=== PATIENT | female | born 1930 | race Caucasian/White ===

== ENCOUNTER 2018-12-18 09:59 | Inpatient (IN) | payer OTHER ==
[~2018-12-18] VITALS: Ht 170.2 cm; Wt 72.8 kg
[~2018-12-18 09:59] MED LIST: ACE325RS PO; FLUT250M2 INH; FURO20TA3 PO; KLOR CON; LOSA-69 PO; LOVA40TA46 PO; METO-169 PO; [UNRECOGNIZED DRUG - CODE] PO
[2018-12-18 11:11] LABS: Basophils # (auto) 0.1 uL; Basophils % (auto) 0.9 % (0.0-2.0); Eosinophils # (auto) 0.1 uL; Eosinophils % (auto) 1.8 % (0.0-7.0); Hematocrit 49.7 % (36.0-46.0); Hemoglobin 16.2 g/dL (12.2-16.2); Lymphocytes # (auto) 1.2 uL; Lymphocytes % (auto) 21.2 % (10.0-50.0); Mean Corpuscular Hemoglobin 28.3 pg (28.0-32.0); Mean Corpuscular Hgb Conc. 32.6 g/dL (32.0-36.0); Mean Corpuscular Volume 86.9 fL (80.0-100.0); Monocytes # (auto) 0.7 uL; Monocytes % (auto) 11.5 % (0.0-12.0); Neutrophils # (auto) 3.7 uL; Neutrophils % (auto) 64.6 % (37.0-80.0); Nucleated Red Blood Cells % 0.1 %; Platelet Count (auto) 251 10^3/uL (140-450); Red Blood Cells 5.72 10^6/uL (4.0-5.20); Red Cell Distribution Width 16.6 % (11.8-14.3); White Blood Cell 5.7 10^3/uL (4.4-10.8)
[2018-12-18 11:27] LABS: INR < 0.93 (0.9-1.15); Partial Thromboplastin Time 26.2 sec (23.64-32.05)
[2018-12-18 11:32] LABS: Albumin 3.8 g/dL (3.4-5.0); Anion Gap 3 (5-15); Blood Urea Nitrogen 12 mg/dL (7-18); Carbon Dioxide 34 mmol/L (21-32); Chloride 104 mmol/L (98-107); Glucose 104 mg/dL (74-106); Potassium 3.5 mmol/L (3.5-5.1); Sodium 141 mmol/L (136-145)
[2018-12-18 11:38] LABS: Alanine Aminotransferase 17 U/L (13-56); Alkaline Phosphatase 119 U/L (45-117); Aspartate Aminotransferase 12 U/L (15-37); Bilirubin, Total 0.5 mg/dL (0.2-1.0); GFR African American 87 mL/min; GFR Non-African American 72 mL/min; Total Protein 7.3 g/dL (6.4-8.2)
[2018-12-18] MEDS ORDERED: IPRATROPIUM BROM 0.5 MG/2.5ML INH SOL NEB PRN (13:15)
[2018-12-18] MEDS ORDERED: ALBUTEROL SULF 2.5 MG/0.5ML(0.5%) NEB SOLN NEB PRN ×2 (13:15→14:15)
[2018-12-18] MEDS ORDERED: MORPHINE SULF INJ 2 MG/ML SYRINGE 1ML IV PRN ×2 (13:15)
[2018-12-18] MEDS ORDERED: NITROGLYCERIN 0.4 MG SL TAB SL PRN (13:15)
[2018-12-18] MEDS ORDERED: ONDANSETRON HCL 4 MG/2 ML VIAL IV PRN (13:15)
[2018-12-18] MEDS: hydrALAZINE HCL 20 MG/ML VL IV PRN (14:11)
[2018-12-18] MEDS ORDERED: LOSARTAN POTASSIUM 50 MG TAB PO ONE (14:15)
[2018-12-18] MEDS ORDERED: NITROGLYCERIN 0.2MG/HR TOPICAL PATCH TD ONE (16:15)
[2018-12-18 16:30] VITALS: BP 152/86
[2018-12-18] MEDS ORDERED: POTA10TA51 PO (16:36)
[2018-12-18 16:37] VITALS: BP 152/86
--- NOTE | 2018-12-18 19:00 | NUR ---
Opening Shift Note Assumed care of patient, awake and alert. No S/S of distress/SOB or pain. Instructed on POC and to call for assist PRN, will continue to monitor for changes Q1hr and PRN.
[2018-12-18 20:00] VITALS: BP 145/81
[2018-12-18] MEDS: traMADol HCL 50 MG TAB PO PRN (20:17)
[2018-12-18 22:00] VITALS: BP 145/81
[2018-12-18] MEDS: ATORVASTATIN 20 MG TAB PO SCH (22:22)
[2018-12-18] MEDS: METOPROLOL TARTRATE 25 MG TAB PO SCH (22:23)
[2018-12-18] MEDS: ACETAMINOPHEN 500 MG TAB PO PRN (22:29)
[2018-12-18] MEDS: BUDESONIDE (INHALATION) 0.5 MG/2 ML NEB NEB SCH (22:59)
[2018-12-19] VITALS (7 sets, daily range): BP systolic 117–157; BP diastolic 69–87
[2018-12-19 05:59] LABS: INR 0.96 (0.9-1.15); Partial Thromboplastin Time 26.8 sec (23.64-32.05); Potassium 3.6 mmol/L (3.5-5.1)
[2018-12-19 06:04] LABS: BUN/Creatinine Ratio 23.8; Calcium 8.6 mg/dL (8.5-10.1)
[2018-12-19 06:08] LABS: Basophils # (auto) 0 uL; Basophils % (auto) 0.8 % (0.0-2.0); Eosinophils # (auto) 0.2 uL; Eosinophils % (auto) 2.5 % (0.0-7.0); Hematocrit 43.9 % (36.0-46.0); Hemoglobin 14.3 g/dL (12.2-16.2); Lymphocytes # (auto) 1.4 uL; Lymphocytes % (auto) 23.5 % (10.0-50.0); Mean Corpuscular Hemoglobin 28.5 pg (28.0-32.0); Mean Corpuscular Hgb Conc. 32.6 g/dL (32.0-36.0); Mean Corpuscular Volume 87.2 fL (80.0-100.0); Monocytes # (auto) 0.7 uL; Monocytes % (auto) 11.1 % (0.0-12.0); Neutrophils # (auto) 3.8 uL; Neutrophils % (auto) 62.1 % (37.0-80.0); Nucleated Red Blood Cells % 0.1 %; Platelet Count (auto) 228 10^3/uL (140-450); Red Blood Cells 5.03 10^6/uL (4.0-5.20); Red Cell Distribution Width 16.4 % (11.8-14.3); White Blood Cell 6.1 10^3/uL (4.4-10.8)
[2018-12-19] MEDS ORDERED: ADENOSINE 61 MG in GIVE UN-DILUTED 0 ML IV STA (08:17)
[2018-12-19] MEDS: ACETAMINOPHEN 500 MG TAB PO PRN (08:38)
--- NOTE | 2018-12-19 09:41 | NUR ---
PT OFF UNIT FOR PROCEDURE
[2018-12-19] MEDS: BUDESONIDE (INHALATION) 0.5 MG/2 ML NEB NEB SCH ×2 (09:53→22:17)
--- NOTE | 2018-12-19 09:53 | NUR ---
Respiratory note: Unable to give scheduled medneb tx, pt is off unit at this time. Will return for next scheduled tx.
[2018-12-19] MEDS: FUROSEMIDE 20 MG TAB PO SCH (10:00)
[2018-12-19] MEDS ORDERED: NITROGLYCERIN 0.4MG/HR TOPICAL PATCH TD SCH (10:00)
--- NOTE | 2018-12-19 11:42 | NUR ---
IV removal IV DC'd with clean sterile technique, catheter fully intact. Pressure dressing applied to site. Patient tolerated well.
[2018-12-19] MEDS: FAMOTIDINE 20 MG TAB PO SCH (11:55)
[2018-12-19] MEDS: ASPirin-EC 81 mg tab PO SCH (11:56)
[2018-12-19] MEDS: LOSARTAN POTASSIUM 50 MG TAB PO SCH (11:57)
[2018-12-19] MEDS: METOPROLOL TARTRATE 25 MG TAB PO SCH ×2 (11:58→21:14)
[2018-12-19] MEDS: traMADol HCL 50 MG TAB PO PRN ×2 (12:21→18:01)
--- NOTE | 2018-12-19 15:58 | NUR ---
IV removal IV DC'd with clean sterile technique, catheter fully intact. Pressure dressing applied to site. Patient tolerated well. IV insertion IV access obtained, via clean sterile technique by inserting 20 gauge catheter at right wrist after 1 attempt. IV secured properly. No trauma to site. Patient tolerated well.
--- NOTE | 2018-12-19 16:45 | NUR ---
Called/paged Dr. sharp called re: constipation . Waiting for call back. Continue care.
--- NOTE | 2018-12-19 16:56 | NUR ---
RETURNED PAGE NEW ORDERS RECEIVED.
[2018-12-19] MEDS ORDERED: BISACODYL 10 MG RECT SUPP PR ONE (17:00)
--- NOTE | 2018-12-19 19:55 | NUR ---
RECEIVED PATIENT IN BED, AAOX4. NO DISTRESS NOTED. INTRODUCED MYSELF TO THE PATIENT. ORIENTATION DONE. DENIES SOB, PAIN. AFEBRILE. POCS DISCUSSED WITH PATIENT AND SHOWED UNDERSTANDING. BED KEPT ON LOWEST POSITION. SIDE RAILS UP. CALL LIGHT/TABLE IN REACH. KEPT COMFORTABLE.
[2018-12-19] MEDS: ATORVASTATIN 20 MG TAB PO SCH (21:14)
[2018-12-20] MEDS: hydrALAZINE HCL 20 MG/ML VL IV PRN (04:55)
[2018-12-20 05:00] VITALS: BP 170/84
[2018-12-20 05:47] VITALS: BP 128/65
--- NOTE | 2018-12-20 06:17 | NUR ---
ON BED, AWAKE. STABLE. NO DISTRESS NOTED. FOR MORE CARE AND MANAGEMENT.
--- NOTE | 2018-12-20 07:35 | NUR ---
Opening Shift Note Assumed care of patient, awake and alert. Pt complaining of 9/10 headache and states "I just do not feel good after that blood pressure medication last night. current VS are WNL. Pt given pain releiving measures and Instructed on POC and to call for assist PRN, will continue to monitor for changes Q1hr and PRN.
[2018-12-20 07:45] LABS: Basophils # (auto) 0.1 uL; Basophils % (auto) 0.7 % (0.0-2.0); Eosinophils # (auto) 0.1 uL; Eosinophils % (auto) 1.2 % (0.0-7.0); Hematocrit 45.3 % (36.0-46.0); Hemoglobin 15.1 g/dL (12.2-16.2); Lymphocytes # (auto) 1.4 uL; Lymphocytes % (auto) 17.5 % (10.0-50.0); Mean Corpuscular Hemoglobin 28.7 pg (28.0-32.0); Mean Corpuscular Hgb Conc. 33.3 g/dL (32.0-36.0); Mean Corpuscular Volume 86.2 fL (80.0-100.0); Monocytes # (auto) 0.8 uL; Monocytes % (auto) 9.6 % (0.0-12.0); Neutrophils # (auto) 5.6 uL; Platelet Count (auto) 221 10^3/uL (140-450); Red Blood Cells 5.25 10^6/uL (4.0-5.20); Red Cell Distribution Width 16.6 % (11.8-14.3); White Blood Cell 7.9 10^3/uL (4.4-10.8)
[2018-12-20 07:53] LABS: BUN/Creatinine Ratio 23.3; Calcium 8.9 mg/dL (8.5-10.1); Potassium 3.4 mmol/L (3.5-5.1)
[2018-12-20] MEDS: traMADol HCL 50 MG TAB PO PRN ×2 (07:53→20:15)
[2018-12-20 07:56] LABS: INR 0.97 (0.9-1.15); Partial Thromboplastin Time 26.2 sec (23.64-32.05)
[2018-12-20 09:00] VITALS: BP 150/69
[2018-12-20] MEDS: FAMOTIDINE 20 MG TAB PO SCH (09:12)
[2018-12-20] MEDS: ASPirin-EC 81 mg tab PO SCH (09:12)
[2018-12-20] MEDS: METOPROLOL TARTRATE 25 MG TAB PO SCH ×2 (09:12→21:59)
[2018-12-20] MEDS: LOSARTAN POTASSIUM 50 MG TAB PO SCH (09:12)
[2018-12-20] MEDS: FUROSEMIDE 20 MG TAB PO SCH (09:13)
[2018-12-20] MEDS: ACETAMINOPHEN 500 MG TAB PO PRN (10:29)
[2018-12-20] MEDS: BUDESONIDE (INHALATION) 0.5 MG/2 ML NEB NEB SCH ×2 (10:29→21:38)
--- NOTE | 2018-12-20 11:15 | NUR ---
PT OFF UNIT FOR PROCEDURE
[2018-12-20] MEDS ORDERED: IOHEXOL 350 MG/ML 100ML IJ ONE (11:19)
[2018-12-20] MEDS ORDERED: LIDOCAINE 2%HCL (LOCAL ANESTH.) INJ 20ML MDV ONE (11:19)
--- NOTE | 2018-12-20 11:38 | NUR ---
ROUNDING MD GRIFFIN ROUNDING. PT DOWN FOR PROCEDURE. ELIAS UPDATED ON PT STATUS
[2018-12-20] MEDS ORDERED: POTASSIUM CHL 20 Meq TABLET PO ONE (11:45)
[2018-12-20] MEDS ORDERED: ANGIOMAX 250 MG VIAL IV ONE (12:49)
[2018-12-20] MEDS ORDERED: SODIUM CHL 0.9% 0 ML ONE (12:49)
[2018-12-20] MEDS ORDERED: fentaNYL CITRATE 100 MCG/2 ML VL ONE (12:49)
[2018-12-20] MEDS ORDERED: MIDAZOLAM HCL 1MG/1ML-2 ML VIAL ONE (12:49)
--- NOTE | 2018-12-20 12:54 | NUR ---
NUTRITION ASSESSMENT NOTES Please refer to link notes of nutrition screen form filed under the intervention section of the plan of care for further details. Est. Needs: 1800 kcal to 2150 kcal (25-30 kcal/kgBW), 58 gms to 72 gms pro (0.8-1.0 gms/kgBW). Will continue to monitor pertinent labs and reassess nutrient need prn Thank you. Addendum: 12/20/18 at [address] Amended: Links added.
--- NOTE | 2018-12-20 14:25 | NUR ---
Report received from Dulce Maria RIZZO. VALE DUQUE brought to bed 286 following Left Cardiac catheterization, on cardiac cath lab radiology technologist. Catheterization site assessed for any bleeding, redness or swelling. Pedal pulses on affected leg assessed for positive tissue perfusion. Patient instructed on need to notify staff immediately if any pain, burning or wetness to site, and any lower back pain. . All questions and concerns addressed, patient verbalized understanding of all education and instruction.
[2018-12-20 17:00] VITALS: BP 131/63
--- NOTE | 2018-12-20 19:30 | NUR ---
Opening Shift Note Received report from sudhakar Bragg RN. Assumed care of patient, awake and alert. No S/S of distress/SOB or pain. Instructed on POC and to call for assist PRN, will continue to monitor for changes Q1hr and PRN. Bed placed in lowest position, bed alarm turned on and call light within reach.
--- NOTE | 2018-12-20 20:30 | NUR ---
ROUNDS Patient states that her one hearing aid is missing in the room. Patient claims that she had it on when she came back from the field laborer. MANAGER MANUFACTURING and nurse assisted patient in finding the hearing aid, but unsuccessful. Will continue to keep an eye on the missing hearing aid. Will monitor.
--- NOTE | 2018-12-20 21:40 | NUR ---
Respiratory note: AT BEDSIDE FOR MED ASA COHEN.
[2018-12-20] MEDS: ATORVASTATIN 20 MG TAB PO SCH (21:58)
[2018-12-20 22:00] VITALS: BP 163/75
[2018-12-21 05:00] VITALS: BP 148/75
[2018-12-21 05:21] LABS: BUN/Creatinine Ratio 21.2; Calcium 8.6 mg/dL (8.5-10.1); Potassium 3.7 mmol/L (3.5-5.1)
--- NOTE | 2018-12-21 06:30 | NUR ---
PATIENT IS COMPLAINING OF PAIN TO BACK OF 8/10. GIVEN TRAMADOL PER PATIENT REQUEST. PATIENT IS SITTING AT BEDSIDE, ALERT AND AWAKE NO DISTRESS NOTED AT THIS TIME. WILL MONITOR.
[2018-12-21] MEDS: traMADol HCL 50 MG TAB PO PRN ×2 (06:34→13:18)
--- NOTE | 2018-12-21 08:00 | NUR ---
Morning note Patient resting in bed with even and unlabored respirations, no distress noted. Instructed patient on POC, fall precautions and to call for assistance as needed. Patient verbalized understanding. Fall precautions in place with bed in lowest locked position with call light within reach. Right groin dressing is clean, dry and intact. Will continue to monitor q1hr & PRN.
--- NOTE | 2018-12-21 08:01 | NUR ---
RE: Reported missing right hearing aid Patient stated "My right hearing aid got lost the other day. We searched and searched trying to find it but haven't been able to find it. I already told the nurse and everybody else. Everyone was in here looking for it."
[2018-12-21 09:00] VITALS: BP 146/67
[2018-12-21] MEDS: BUDESONIDE (INHALATION) 0.5 MG/2 ML NEB NEB SCH (10:27)
[2018-12-21] MEDS: ASPirin-EC 81 mg tab PO SCH (11:09)
[2018-12-21] MEDS: METOPROLOL TARTRATE 25 MG TAB PO SCH (11:09)
[2018-12-21] MEDS: FAMOTIDINE 20 MG TAB PO SCH (11:10)
[2018-12-21] MEDS: LOSARTAN POTASSIUM 50 MG TAB PO SCH (11:10)
[2018-12-21] MEDS: FUROSEMIDE 20 MG TAB PO SCH (11:10)
--- NOTE | 2018-12-21 11:44 | NUR ---
at bedside - Dr. Correa Patient clear for discharge.
--- NOTE | 2018-12-21 12:46 | NUR ---
assessment Patient is a 88 year old female who is alert and oriented. Patients cognitive abilities are intact. Prior to admission patient lived home with her sister and functioned independently. Patient informed me she is able to care for her own ADLs. Per patient she will return home to her prior living arrangements post discharge and her sister will transport her home. Patient informed me she has a fww, cane, and wheelchair for home use. Patients PCP is Ann Marie Daniels. Patient informed me she feels safe returning home on discharge. Patient has no post discharge needs at this time. I informed patient she has a right to speak to a social sciences professor regarding all care. I informed patient she has a right to participate in any and all discharge planning. Patient has a POA and advanced directive. Patient verbalized understanding and agreed to discharge plan. Addendum: 12/21/18 at 1249 by Shea ALBA Amended: Links added.
[2018-12-21 13:00] VITALS: BP 148/71
--- NOTE | 2018-12-21 15:38 | NUR ---
Discharge Discharge education and paperwork provided to the patient per MD order. Patient verbalized understanding. Patient instructed to follow up with Dr. Shin (mixing operator) in 1 week. Patient verbalized understanding. IV removed with clean technique, catheter intact. Dressing applied. Patient tolerated well, no trauma to site. Telemonitor removed and returned to telemonitor tech. Patient reports right hearing aid continues to be missing. Patient reports having all other personal belongings. Respirations are even and unlabored, no distress noted. Right groin dressing is clean, dry and intact. No ecchymosis noted. Patient taken to private vehicle by staff member via wheelchair. Family at patient's side.
--- NOTE | 2018-12-21 15:52 | NUR ---
Notified Kristopher Madrigal of reported missing hearing aid no answer. Voicemail left.
== END 2018-12-21 15:37 | disposition home or self-care (01) | DRG 287 ==
LOC: ER 10:04 → TELE 10:05 → TELE-WESTW 16:12
PROVIDERS: ADMIT Nurse Practitioner Acute Care; ATTEND Internal Medicine
PROC: 4A023N7 Measurement of Cardiac Sampling and Pressure, Left Heart, Percutaneous Approach (ICD-10-PCS; principal; 2018-12-20)
PROC: B2111ZZ Fluoroscopy of Multiple Coronary Arteries using Low Osmolar Contrast (ICD-10-PCS; 2018-12-20)
PROC: B2151ZZ Fluoroscopy of Left Heart using Low Osmolar Contrast (ICD-10-PCS; 2018-12-20)
DX: R07.9 Chest pain, unspecified (principal); I13.0 Hypertensive heart and chronic kidney disease with heart failure and stage 1 through stage 4 chronic kidney disease, or unspecified chronic kidney disease; J44.9 Chronic obstructive pulmonary disease, unspecified; I25.2 Old myocardial infarction; E78.5 Hyperlipidemia, unspecified; N18.3 Chronic kidney disease, stage 3 (moderate); E78.00 Pure hypercholesterolemia, unspecified; I50.9 Heart failure, unspecified; M54.5 Low back pain; G89.29 Other chronic pain; I08.1 Rheumatic disorders of both mitral and tricuspid valves; I25.10 Atherosclerotic heart disease of native coronary artery without angina pectoris; M19.90 Unspecified osteoarthritis, unspecified site; Z87.11 Personal history of peptic ulcer disease; Z90.710 Acquired absence of both cervix and uterus; Z79.899 Other long term (current) drug therapy; Z79.82 Long term (current) use of aspirin; Z79.51 Long term (current) use of inhaled steroids; Z88.0 Allergy status to penicillin; Z88.8 Allergy status to other drugs, medicaments and biological substances; Z90.49 Acquired absence of other specified parts of digestive tract; Z98.49 Cataract extraction status, unspecified eye; Z82.3 Family history of stroke; Z82.49 Family history of ischemic heart disease and other diseases of the circulatory system
CPT/HCPCS: 36415; 71046; 78452; 80048; 80053; 84484; 85025; 85610; 85730; 86141; 86850; 86900; 86901; 93005; 93017; 93306; 93458; 94640; 96365; 96375; 99152; G0378; J0153; J2250

== ENCOUNTER → 2019-03-30 | Outpatient (CLI) | payer OTHER ==
[~2019-03-30] MED LIST changes: -KLOR CON; -METO-169 PO; +POTA10TA51 PO
== END | disposition home or self-care (01) ==
LOC: LAB 06:58
PROVIDERS: ATTEND Internal Medicine
DX: N30.90 Cystitis, unspecified without hematuria (principal)
CPT/HCPCS: 87086

== ENCOUNTER 2020-09-25 08:50 | Day surgery (SDC) | payer OTHER ==
[2020-09-22 10:24] LABS: Basophils # (auto) 0 10 ^3/uL (0-0.2); Basophils % (auto) 0.6 % (0.0-2.0); Eosinophils # (auto) 0.1 10 ^3/uL (0-0.8); Hematocrit 42.9 % (36.0-46.0); Hemoglobin 14.1 g/dL (12.2-16.2); Lymphocytes # (auto) 1.1 10 ^3/uL (0.4-5.4); Mean Corpuscular Hemoglobin 28.6 pg (28.0-32.0); Mean Corpuscular Hgb Conc. 32.9 g/dL (32.0-36.0); Monocytes # (auto) 0.7 10 ^3/uL (0-1.3); Monocytes % (auto) 11.1 % (0.0-12.0); Neutrophils % (auto) 67.3 % (37.0-80.0); Red Blood Cells 4.94 10^6/uL (4.0-5.20); Red Cell Distribution Width 16.4 % (11.8-14.3)
[2020-09-22 10:44] LABS: Urine Bacteria FEW /hpf (None Seen); Urine Blood Negative /uL (Negative); Urine Mucus FEW (None Seen); Urine WBC 2 /hpf (0 - 5)
[2020-09-22 10:51] LABS: INR 0.97 (0.9-1.15); Partial Thromboplastin Time 25.8 sec (23.0-31.2)
[2020-09-22 10:56] LABS: Albumin 3.7 g/dL (3.4-5.0); Calcium 8.6 mg/dL (8.5-10.1)
[2020-09-22 11:01] LABS: BUN/Creatinine Ratio 18.1; Bilirubin, Total 0.5 mg/dL (0.2-1.0); Total Protein 6.8 g/dL (6.4-8.2)
[~2020-09-25] VITALS: Ht 172.7 cm; Wt 70.3 kg
[~2020-09-25 08:50] MED LIST changes: +HYDR1TAB97 PO
[2020-09-25] MEDS ORDERED: PROPOFOL 10 MG/ML 20 ML IV ONE (11:45)
[2020-09-25] MEDS ORDERED: fentaNYL CITRATE 100 MCG/2 ML VL ONE (12:01)
[2020-09-25] MEDS ORDERED: MIDAZOLAM HCL 1MG/1ML-2 ML VIAL ONE (12:01)
[2020-09-25] MEDS ORDERED: ONDANSETRON HCL 4 MG/2 ML VIAL IV PRN (12:45)
[2020-09-25 12:50] VITALS: BP 175/79
== END 2020-09-25 13:00 | disposition home or self-care (01) ==
LOC: GI 08:50
PROVIDERS: ATTEND Internal Medicine Gastroenterology
DX: R19.5 Other fecal abnormalities (principal); K57.30 Diverticulosis of large intestine without perforation or abscess without bleeding; K64.8 Other hemorrhoids; J44.9 Chronic obstructive pulmonary disease, unspecified; R09.1 Pleurisy; Z87.891 Personal history of nicotine dependence; Z20.822 Contact with and (suspected) exposure to COVID-19; Z88.0 Allergy status to penicillin; Z88.8 Allergy status to other drugs, medicaments and biological substances; Z91.048 Other nonmedicinal substance allergy status
CPT/HCPCS: 36415; 45378; 80053; 81001; 85025; 85049; 85610; 85730; J2250; J2704; J3010; J7030; U0003